=== PATIENT | female | born 1955 ===

== ENCOUNTER 2022-12-12 03:54 | Outpatient (RCR) | payer MEDICARE, OTHER, SELFPAY | END 2022-12-23 23:59 | disposition home or self-care (01) | LOC: INF 03:54 | PROVIDERS: Visit Provider Nurse Practitioner Family | DX: L40.50 Arthropathic psoriasis, unspecified (principal) | CPT/HCPCS: 96372; J0717 ==

== ENCOUNTER 2023-01-10 02:07 | Outpatient (RCR) | payer MEDICARE, OTHER, SELFPAY ==
[2023-01-10 09:12] LABS: Abs Immature Grans 0.01 10^3/uL (0.0-0.06); Absolute Basophil Count 0.04 10^3/uL (0.0-0.2); Absolute Eosinophil Count 0.21 10^3/uL (0.0-0.7); Absolute Lymphocyte Count 3.26 10^3/uL (1.2-3.4); Absolute Monocyte Count 0.57 10^3/uL (0.1-0.8); Absolute Neutrophil Count 3.85 10^3/uL (1.2-6.7); Basophils % 0.5; Eosinophils % 2.6; HCT 40.7 % (36.0-46.0); HGB 13.7 g/dL (11.2-15.7); Immature Grans % 0.1; Lymphocytes % 41.1; MCHC 33.7 % (32.0-36.0); MCV 92 fL (80-95); MPV 11.2 fL (8.0-11.0); Monocytes % 7.2; Neutrophils % 48.5; Platelet Count 232 10^3/uL (130-400); RBC 4.42 10^6/uL (3.93-5.22); RDW 12.9 % (11.7-14.6); RDW-SD 43.7 fL; WBC 7.94 10^3/uL (4.4-10.8)
[2023-01-10 09:13] LABS: Bilirubin Negative (Negative); Blood Negative (Negative); Clarity Clear (Clear); Glucose Negative (Negative); Ketones Negative (Negative); Leukocyte Esterase Negative (Negative); Nitrite Negative (Negative); Urobilinogen 0.2 mg/dL (Up to 0.2); pH 8.5 (5-8)
[2023-01-10 09:28] LABS: ALT 23 U/L (14-59); AST 15 U/L (15-37); Albumin 3.8 g/dL (3.4-5.0); Alkaline Phosphatase 63 U/L (46-116); Anion Gap 2.5 mmol/L (3-11); BUN 30 mg/dL (7-18); Bilirubin, Total 0.4 mg/dL (0.2-1.0); CO2 33.5 mmol/L (21.0-32.0); CREATININE 0.8 mg/dL (0.55-1.02); Calcium 8.9 mg/dL (8.5-10.1); Chloride 106 mmol/L (98-107); Estimated GFR 80.21 (mL/min/1.73m2); Glucose 88 mg/dL (74-106); Potassium 4.9 mmol/L (3.5-5.1); Sodium 142 mmol/L (136-145)
== END 2023-01-23 23:59 | disposition home or self-care (01) ==
LOC: INF 02:07
PROVIDERS: Visit Provider Nurse Practitioner Family
DX: L40.50 Arthropathic psoriasis, unspecified (principal)
CPT/HCPCS: 36415; 80053; 96372; 81003; 85025; J0717

== ENCOUNTER 2023-02-06 03:38 | Outpatient (RCR) | payer MEDICARE, OTHER, SELFPAY | END 2023-02-23 23:59 | disposition home or self-care (01) | LOC: INF 03:38 | PROVIDERS: Visit Provider Nurse Practitioner Family | DX: L40.50 Arthropathic psoriasis, unspecified (principal) | CPT/HCPCS: 96372; J0717 ==

== ENCOUNTER 2023-03-06 01:41 | Outpatient (RCR) | payer MEDICARE, OTHER, SELFPAY | END 2023-03-25 23:59 | disposition home or self-care (01) | LOC: INF 01:41 | PROVIDERS: Visit Provider Nurse Practitioner Family | DX: L40.50 Arthropathic psoriasis, unspecified (principal) | CPT/HCPCS: 96372; J0717 ==